=== PATIENT | male | born 1940 | race Caucasian/White ===

== ENCOUNTER 2020-11-03 08:47 | Outpatient (RCR) | payer MEDICARE, OTHER, SELFPAY | END 2020-11-24 10:00 | disposition home or self-care (01) | LOC: HO.WCC 08:47 | PROVIDERS: PCP Internal Medicine; Visit Provider Physician Assistant | DX: E11.621 Type 2 diabetes mellitus with foot ulcer (principal); E11.52 Type 2 diabetes mellitus with diabetic peripheral angiopathy with gangrene; L97.512 Non-pressure chronic ulcer of other part of right foot with fat layer exposed; E66.09 Other obesity due to excess calories | CPT/HCPCS: 11042; 99212; 99213 ==